=== PATIENT | male | born 1960 | race Caucasian/White ===

== ENCOUNTER 2024-03-01 07:39 | Outpatient (RCR) | payer BC, SELFPAY ==
[2024-02-09 09:37] LABS: Glucose - Point of Care 124 mg/dl (70-99)
[2024-02-09 10:21] LABS: Glucose - Point of Care 105 mg/dl (70-99)
[2024-02-11 06:29] LABS: Glucose - Point of Care 191 mg/dl (70-99)
[2024-02-11 07:23] LABS: Glucose - Point of Care 181 mg/dl (70-99)
[2024-02-14 06:44] LABS: Glucose - Point of Care 149 mg/dl (70-99)
[2024-02-14 07:23] LABS: Glucose - Point of Care 157 mg/dl (70-99)
[2024-02-16 06:41] LABS: Glucose - Point of Care 175 mg/dl (70-99)
[2024-02-16 07:36] LABS: Glucose - Point of Care 175 mg/dl (70-99)
[2024-02-21 06:28] LABS: Glucose - Point of Care 122 mg/dl (70-99)
[2024-02-21 07:24] LABS: Glucose - Point of Care 132 mg/dl (70-99)
[2024-02-23 06:32] LABS: Glucose - Point of Care 180 mg/dl (70-99)
[2024-02-23 07:27] LABS: Glucose - Point of Care 154 mg/dl (70-99)
== END 2024-03-01 23:59 | disposition home or self-care (01) ==
LOC: CRHB 07:39
PROVIDERS: ATTENDING PHYSICIAN Internal Medicine Cardiovascular Disease; PRIMARYCARE PHYSICIAN General Practice
DX: I25.10 Atherosclerotic heart disease of native coronary artery without angina pectoris (principal); Z95.1 Presence of aortocoronary bypass graft
CPT/HCPCS: 82962; 93797; 93798; G0422; G0423